=== PATIENT | female | born 1970 | race Hispanic/Latino ===

== ENCOUNTER 2017-12-04 12:59 | Emergency (ER) | payer OTHER ==
[2017-12-04] MEDS ORDERED: DEXAMETHASONE SOD PHOSPHATE 10MG/ML 1ML VIAL ONE (13:33)
[2017-12-04] MEDS ORDERED: MECLIZINE HCL 25 MG TABLET ONE (13:33)
[2017-12-04] MEDS ORDERED: IPRATROPIUM/ALBUTEROL SULFATE 3 ML SOLUTION IH ONE (13:34)
== END 2017-12-04 15:01 | disposition home or self-care (01) ==
LOC: EDH 12:59
DX: R42 Dizziness and giddiness (principal); J20.9 Acute bronchitis, unspecified; Z87.891 Personal history of nicotine dependence
CPT/HCPCS: 94640; 96372; 99283; J1100

== ENCOUNTER 2017-12-22 23:40 | Emergency (ER) | payer OTHER ==
[2017-12-23] MEDS ORDERED: IBUPROFEN 600 MG TABLET ONE (01:11)
== END 2017-12-23 02:00 | disposition home or self-care (01) ==
LOC: EDH 23:40
DX: S82.892A Other fracture of left lower leg, initial encounter for closed fracture (principal); X58.XXXA Exposure to other specified factors, initial encounter; Y93.89 Activity, other specified; Y92.098 Other place in other non-institutional residence as the place of occurrence of the external cause; Y99.8 Other external cause status
CPT/HCPCS: 29515; 73610

== ENCOUNTER 2019-06-11 21:46 | Emergency (ER) | payer OTHER ==
[2019-06-11] MEDS ORDERED: ONDANSETRON HCL 4 MG/2 ML VIAL ONE (22:07)
[2019-06-11] MEDS ORDERED: SODIUM CHLORIDE 0.9% 1000ML 1,000 ML IV ONE ×2 (22:07→22:33)
[2019-06-11 22:18] LABS: BASOPHILS % (AUTO) 0.5 % (0.0-5.0); HEMATOCRIT 39.4 % (36-48); LYMPHOCYTES % (AUTO) 38.1 % (21.0-51.0); MEAN CORPUSCULAR HEMOGLOBIN 29.3 pg (27.0-33.0); MEAN CORPUSCULAR HGB CONC 33.2 g/dL (32.0-36.0); MEAN CORPUSCULAR VOLUME 88.1 fL (79-99); MONOCYTES % (AUTO) 6.3 % (3.0-13.0); NEUTROPHILS % (AUTO) 53.1 % (40.0-77.0); NUCLEATED RED BLOOD CELLS 0.1 % (0.0-0.19); PLATELET COUNT (AUTO) 259 K/uL (130-400); RED BLOOD CELL COUNT(AUTO) 4.47 MIL/uL (4.00-5.50); RED CELL DISTRIBUTION WIDTH 16.4 % (11.0-15.5); WHITE BLOOD COUNT (AUTO) 8.3 K/uL (4.8-10.8)
[2019-06-11] MEDS ORDERED: MECLIZINE HCL 25 MG TABLET ONE (22:23)
[2019-06-11] MEDS ORDERED: DiphenhydrAMINE HCL 50 MG/ML VIAL ONE (22:23)
[2019-06-11 22:29] LABS: CREATININE 0.8 mg/dL (0.5-1.5); POTASSIUM 3.4 mmol/L (3.5-5.1)
[2019-06-11 22:34] LABS: ALBUMIN 3.5 g/dL (3.5-5.0); BILIRUBIN,TOTAL 0.1 mg/dL (0.2-1.0); TOTAL PROTEIN, SERUM 7.3 g/dL (6.0-8.3)
[2019-06-11 22:44] LABS: CREATINE KINASE, TOTAL 51 U/L (21-232); MYOGLOBIN 23 ng/mL (10-92); TROPONIN I < 0.04 ng/mL (0.00-0.06)
[2019-06-11 22:48] LABS: APPEARANCE,URINE Clear (CLEAR); BILIRUBIN,URINE Negative (NEGATIVE); COLOR,URINE Yellow (YELLOW); GLUCOSE, URINE (UA) Negative (NEGATIVE); KETONES,URINE Negative (NEGATIVE); LEUKOCYTE ESTERASE ,URINE Negative (NEGATIVE); NITRATE,URINE Negative (NEGATIVE); OCCULT BLOOD,URINE Negative (NEGATIVE); PROTEIN,URINE Negative (NEGATIVE)
== END 2019-06-12 00:09 | disposition home or self-care (01) ==
LOC: EDH 21:46
DX: E86.9 Volume depletion, unspecified (principal); H81.10 Benign paroxysmal vertigo, unspecified ear; I25.2 Old myocardial infarction; Z90.49 Acquired absence of other specified parts of digestive tract; Z90.710 Acquired absence of both cervix and uterus
CPT/HCPCS: 36415; 70450; 71045; 80053; 81003; 82550; 83605 ×2; 83874; 84484; 85025; 87040 ×2; 93005; 96361; 96374; 96375; 99285; J1200; J2405; J7030 ×2

== ENCOUNTER 2021-08-07 21:32 | Observation (INO) | payer OTHER ==
[~2021-08-07] VITALS: Ht 152.4 cm; Wt 97.7 kg
[2021-08-07 22:25] LABS: BASOPHILS % (AUTO) 0.4 % (0.0-5.0); EOSINOPHILS % (AUTO) 3.7 % (0.0-8.0); HEMATOCRIT 45.1 % (36-48); LYMPHOCYTES % (AUTO) 39.5 % (21.0-51.0); MEAN CORPUSCULAR HEMOGLOBIN 31.5 pg (27.0-33.0); MEAN CORPUSCULAR HGB CONC 33.7 g/dL (32.0-36.0); MEAN CORPUSCULAR VOLUME 93.4 fL (79-99); MONOCYTES % (AUTO) 7.2 % (3.0-13.0); PLATELET COUNT (AUTO) 266 K/uL (130-400); RED BLOOD CELL COUNT(AUTO) 4.83 MIL/uL (4.00-5.50); RED CELL DISTRIBUTION WIDTH 12.7 % (11.0-15.5); WHITE BLOOD COUNT (AUTO) 9.3 K/uL (4.8-10.8)
[2021-08-07 22:34] LABS: CREATININE 0.8 mg/dL (0.5-1.5); POTASSIUM 4.1 mmol/L (3.5-5.1)
[2021-08-07 22:40] LABS: ALBUMIN 3.5 g/dL (3.5-5.0); BILIRUBIN,TOTAL 0.2 mg/dL (0.2-1.0); TOTAL PROTEIN, SERUM 7.6 g/dL (6.0-8.3)
[2021-08-07 22:46] LABS: APPEARANCE,URINE Clear (CLEAR); BILIRUBIN,URINE Negative (NEGATIVE); COLOR,URINE Yellow (YELLOW); GLUCOSE, URINE (UA) Negative (NEGATIVE); KETONES,URINE Negative (NEGATIVE); LEUKOCYTE ESTERASE ,URINE Negative (NEGATIVE); NITRATE,URINE Negative (NEGATIVE); OCCULT BLOOD,URINE Negative (NEGATIVE); PROTEIN,URINE Negative (NEGATIVE); UROBILINOGEN,URINE 0.2 mg/dL (0.2-1.0)
[2021-08-08] MEDS ORDERED: ONDANSETRON 4MG INJ IV PRN (01:30)
[2021-08-08] MEDS ORDERED: ACETAMINOPHEN 325 MG TAB PO PRN (01:30)
[2021-08-08 02:16] LABS: HEMOGLOBIN A1C 5.9 % (4.0-6.0)
[2021-08-08 02:41] LABS: CHOLESTEROL 135 mg/dL (<200); HDL CHOLESTEROL 35 mg/dL (35-85); LDL DIRECT 86 mg/dL (0-99); TRIGLYCERIDES 67 mg/dL (30-200)
[2021-08-08] MEDS: MECLIZINE HCL 25 MG TABLET PO PRN ×2 (03:10→18:25)
[2021-08-08] MEDS: ASPIRIN 81MG CHEW TAB PO SCH (10:16)
[2021-08-08] MEDS: FAMOTIDINE 20MG TAB PO SCH ×2 (10:17→21:04)
[2021-08-08] MEDS ORDERED: MECL-160 PO (10:54)
[2021-08-08] MEDS ORDERED: OMEP40CA21 PO (10:54)
[2021-08-08] MEDS ORDERED: ERGO500093 PO (10:54)
[2021-08-08] MEDS ORDERED: ATOR10TA69 PO (10:54)
[2021-08-08 11:46] VITALS: BP 112/62
[2021-08-08 16:33] VITALS: BP 107/65
[2021-08-08] MEDS: ACETAMINOPHEN 325 MG TAB PO PRN (18:26)
[2021-08-08 20:00] VITALS: BP 118/64
[2021-08-09] VITALS (7 sets, daily range): BP systolic 110–130; BP diastolic 50–76
[2021-08-09] MEDS: MECLIZINE HCL 25 MG TABLET PO PRN (00:27)
[2021-08-09 04:42] LABS: HEMATOCRIT 41.8 % (36-48); MEAN CORPUSCULAR HEMOGLOBIN 31.1 pg (27.0-33.0); MEAN CORPUSCULAR HGB CONC 32.8 g/dL (32.0-36.0); RED BLOOD CELL COUNT(AUTO) 4.4 MIL/uL (4.00-5.50); RED CELL DISTRIBUTION WIDTH 12.7 % (11.0-15.5)
[2021-08-09 04:57] LABS: CREATININE 0.8 mg/dL (0.5-1.5); POTASSIUM 3.6 mmol/L (3.5-5.1)
[2021-08-09] MEDS: FAMOTIDINE 20MG TAB PO SCH ×2 (08:52→19:36)
[2021-08-09] MEDS: ASPIRIN 81MG CHEW TAB PO SCH (08:52)
[2021-08-09] MEDS ORDERED: ATORVASTATIN 10 MG TABLET PO SCH (09:00)
[2021-08-09] MEDS ORDERED: GADOTERATE MEGLUMINE 10 MMOL/20 ML VIAL IV ONE (09:44)
[2021-08-09] MEDS: MECLIZINE HCL 25 MG TABLET PO SCH ×2 (10:00→14:00)
[2021-08-10] MEDS: MECLIZINE HCL 25 MG TABLET PO SCH ×2 (01:50→05:57)
[2021-08-10] MEDS: ACETAMINOPHEN 325 MG TAB PO PRN (01:51)
[2021-08-10 03:50] VITALS: BP 119/75
[2021-08-10 07:40] VITALS: BP 115/76
[2021-08-10] MEDS ORDERED: MECL-160 PO (07:40)
== END 2021-08-10 09:55 | disposition home or self-care (01) ==
LOC: EDH 21:32 → EDHIP 08-08 01:09 → 3DH 08-08 08:30
PROVIDERS: ADMIT Internal Medicine; ATTEND Internal Medicine
DX: R42 Dizziness and giddiness (principal); Z20.822 Contact with and (suspected) exposure to COVID-19; R51.9 Headache, unspecified; R11.0 Nausea; R26.0 Ataxic gait; E78.5 Hyperlipidemia, unspecified; I25.10 Atherosclerotic heart disease of native coronary artery without angina pectoris; I25.2 Old myocardial infarction; F17.210 Nicotine dependence, cigarettes, uncomplicated; H55.09 Other forms of nystagmus; H66.90 Otitis media, unspecified, unspecified ear; Z90.710 Acquired absence of both cervix and uterus; Z86.16 Personal history of COVID-19; Z79.899 Other long term (current) drug therapy
CPT/HCPCS: 36415 ×3; 70450; 70551; 70553; 71045; 80048; 80053; 80061; 81003; 82550; 83036; 84484; 85025; 85027; 85378; 87635; 93005; 96374; 99285; A4600; A9575; G0378 ×56; J2405

== ENCOUNTER 2022-09-15 02:15 | Emergency (ER) | payer OTHER ==
[~2022-09-15] VITALS: Ht 152.4 cm; Wt 95.3 kg
[~2022-09-15 02:15] MED LIST: ATOR10TA69 PO; ERGO500093 PO; MECL-160 PO; OMEP40CA21 PO
[2022-09-15 02:20] VITALS: BP 154/73
[2022-09-15 02:43] LABS: BASOPHILS % (AUTO) 0.3 % (0.0-5.0); EOSINOPHILS % (AUTO) 4.2 % (0.0-8.0); HEMATOCRIT 41.7 % (36-48); LYMPHOCYTES % (AUTO) 40.1 % (21.0-51.0); MEAN CORPUSCULAR HEMOGLOBIN 30.4 pg (27.0-33.0); MEAN CORPUSCULAR HGB CONC 33.8 g/dL (32.0-36.0); MEAN CORPUSCULAR VOLUME 89.9 fL (79-99); NEUTROPHILS % (AUTO) 48.1 % (40.0-77.0); PLATELET COUNT (AUTO) 289 K/uL (130-400); RED BLOOD CELL COUNT(AUTO) 4.64 MIL/uL (4.00-5.50); RED CELL DISTRIBUTION WIDTH 12.6 % (11.0-15.5); WHITE BLOOD COUNT (AUTO) 11.7 K/uL (4.8-10.8)
[2022-09-15 02:44] LABS: APPEARANCE,URINE CLEAR (CLEAR); BILIRUBIN,URINE NEGATIVE (NEGATIVE); COLOR,URINE LIGHT-YELLOW (YELLOW); GLUCOSE, URINE (UA) NEGATIVE (NEGATIVE); KETONES,URINE NEGATIVE (NEGATIVE); LEUKOCYTE ESTERASE ,URINE NEGATIVE Leu/uL (NEGATIVE); NITRATE,URINE NEGATIVE (NEGATIVE); OCCULT BLOOD,URINE NEGATIVE (NEGATIVE); PROTEIN,URINE NEGATIVE (NEGATIVE); UROBILINOGEN,URINE 0.2 mg/dL (0.2-1.0)
[2022-09-15 02:49] LABS: CREATININE 0.7 mg/dL (0.5-1.5); POTASSIUM 3.3 mmol/L (3.5-5.1)
[2022-09-15 02:54] LABS: ALBUMIN 3.4 g/dL (3.5-5.0); TOTAL PROTEIN, SERUM 7.5 g/dL (6.0-8.3)
[2022-09-15] MEDS ORDERED: CYCL-309 PO (03:42)
== END 2022-09-15 04:14 | disposition home or self-care (01) ==
LOC: EDH 02:15
DX: M54.9 Dorsalgia, unspecified (principal); K43.9 Ventral hernia without obstruction or gangrene; Z90.49 Acquired absence of other specified parts of digestive tract; Z90.710 Acquired absence of both cervix and uterus
CPT/HCPCS: 36415; 80053; 81003; 85025

== ENCOUNTER 2022-10-25 23:12 | Emergency (ER) | payer OTHER ==
[~2022-10-25] VITALS: Ht 152.4 cm; Wt 96.2 kg
[~2022-10-25 23:12] MED LIST changes: +CYCL-309 PO
[2022-10-26] MEDS ORDERED: IPRATROPIUM/ALBUTEROL SULFATE 3 ML SOLUTION IH ONE
[2022-10-26] MEDS ORDERED: ALBUTEROL 0.083% 2.5 MG/3 ML INH IH ONE (00:30)
[2022-10-26] MEDS ORDERED: IPRATROPIUM 0.5 MG/2.5 ML INH IH ONE (00:30)
[2022-10-26 04:58] VITALS: BP 135/67
== END 2022-10-26 05:02 | disposition home or self-care (01) ==
LOC: EDH 23:12
DX: B34.9 Viral infection, unspecified (principal); Z90.49 Acquired absence of other specified parts of digestive tract; Z90.710 Acquired absence of both cervix and uterus; Z79.899 Other long term (current) drug therapy; Z20.822 Contact with and (suspected) exposure to COVID-19
CPT/HCPCS: 99285; 71045; 87635; 87880; 87804 ×2; 94640; C9803

== ENCOUNTER 2023-01-31 19:43 | Emergency (ER) | payer BC, OTHER ==
[~2023-01-31] VITALS: Ht 152.4 cm; Wt 100.7 kg
[2023-01-31] MEDS ORDERED: ONDANSETRON 4MG INJ IVP ONE (22:00)
[2023-01-31] MEDS ORDERED: MORPHINE 4 MG SYG IVP ONE (22:00)
[2023-01-31] MEDS ORDERED: 0.9%NACL 1000ML 1,000 ML IV ONE (22:00)
[2023-01-31 22:17] LABS: BASOPHILS % (AUTO) 0.6 % (0.0-5.0); EOSINOPHILS % (AUTO) 2.8 % (0.0-8.0); HEMATOCRIT 45.9 % (36-48); LYMPHOCYTES % (AUTO) 37.3 % (21.0-51.0); MEAN CORPUSCULAR HEMOGLOBIN 30.3 pg (27.0-33.0); MEAN CORPUSCULAR HGB CONC 32.7 g/dL (32.0-36.0); MEAN CORPUSCULAR VOLUME 92.7 fL (79-99); MONOCYTES % (AUTO) 7.4 % (3.0-13.0); NEUTROPHILS % (AUTO) 51.7 % (40.0-77.0); PLATELET COUNT (AUTO) 241 K/uL (130-400); RED BLOOD CELL COUNT(AUTO) 4.95 MIL/uL (4.00-5.50); RED CELL DISTRIBUTION WIDTH 13.2 % (11.0-15.5); WHITE BLOOD COUNT (AUTO) 10.9 K/uL (4.8-10.8)
[2023-01-31 22:29] LABS: APPEARANCE,URINE CLEAR (CLEAR); BILIRUBIN,URINE NEGATIVE (NEGATIVE); COLOR,URINE LIGHT-YELLOW (YELLOW); GLUCOSE, URINE (UA) NEGATIVE (NEGATIVE); KETONES,URINE NEGATIVE (NEGATIVE); LEUKOCYTE ESTERASE ,URINE NEGATIVE Leu/uL (NEGATIVE); NITRATE,URINE NEGATIVE (NEGATIVE); OCCULT BLOOD,URINE NEGATIVE (NEGATIVE); PROTEIN,URINE NEGATIVE (NEGATIVE); UROBILINOGEN,URINE 0.2 mg/dL (0.2-1.0)
[2023-01-31 22:36] LABS: CREATININE 0.7 mg/dL (0.5-1.5); POTASSIUM 3.8 mmol/L (3.5-5.1)
[2023-01-31 22:40] LABS: ALBUMIN 3.7 g/dL (3.5-5.0); TOTAL PROTEIN, SERUM 7.9 g/dL (6.0-8.3)
[2023-01-31] MEDS ORDERED: IOHEXOL 350 MG/ML 100ML INFUS..BTL IV ONE (22:43)
[2023-01-31 23:42] VITALS: BP 141/52
== END 2023-01-31 23:50 | disposition home or self-care (01) ==
LOC: EDH 19:43
DX: K46.9 Unspecified abdominal hernia without obstruction or gangrene (principal); Z90.49 Acquired absence of other specified parts of digestive tract; Z90.710 Acquired absence of both cervix and uterus; Z79.899 Other long term (current) drug therapy
CPT/HCPCS: 99284; 74177; 96374; 96375; 80053; 83690; 85025; 81003; 36415; J7030; J2405; J2270; Q9967